=== PATIENT | female | born 1970 | race Hispanic/Latino ===

== ENCOUNTER 2018-12-18 07:39 | Emergency (ER) | payer BC, OTHER ==
[2018-12-18] MEDS ORDERED: Ondansetron PF 4 MG/2 ML Vial ONE (08:30)
[2018-12-18] MEDS ORDERED: Pantoprazole 40 MG VIAL ONE (08:30)
[2018-12-18 08:49] LABS: Bilirubin Negative (Negative); Blood, Urine Negative (Negative); Clarity CLEAR (Clear); Glucose, Urine (Dipstick) Negative (Negative); Leukocyte Negative (Negative); Nitrite Negative (Negative); Protein, Urine (Dipstick) Negative (Neg-Trace); Specific Gravity, Urine 1.004 (1.002-1.036); Urobilinogen 0.2 mg/dL (0.2-1.0)
[2018-12-18 08:54] LABS: Pregnancy Test - Urine (BHCG) Negative (Negative)
[2018-12-18 08:55] LABS: Pregu Control Background? CLEAR/WHITE (CLR/WHITE); Pregu Control Bar Appear? YES (CONTROL BAR); Specific Gravity 1.004 (1.002-1.036)
[2018-12-18 09:06] LABS: ALT (SGPT) 14 U/L (8-55); AST (SGOT) 19 U/L (5-34); Albumin 4.6 g/dL (3.5-5.0); Alkaline Phosphatase 118 U/L (40-150); Anion Gap 14 mmol/L (10-20); BUN (Urea Nitrogen) 12 mg/dL (7.0-18.7); Bilirubin, Total 0.6 mg/dL (0.2-1.2); CK (CPK) 78 U/L (29-168); Calc. Creatinine Clearance 0 mL/min (70-130); Calcium 10.2 mg/dL (7.8-10.44); Carbon Dioxide 26 mmol/L (22-29); Chloride 105 mmol/L (98-107); Estimated GFR-MDRD Greater than 90; Globulin 3.3 g/dL (2.4-3.5); Glucose 93 mg/dL (70-105); Lipase 16 U/L (8-78); Potassium 3.8 mmol/L (3.5-5.1); Protein, Total 7.9 g/dL (6.0-8.3); Sodium 141 mmol/L (136-145)
--- NOTE | 2018-12-18 09:31 | ULT ---
RIGHT UPPER QUADRANT ULTRASOUND: HISTORY: Right upper quadrant pain. Nausea and vomiting. FINDINGS: The liver demonstrates increased echogenicity, consistent with fatty infiltration. No focal mass or intrahepatic ductal dilatation is seen. No gallstones, gallbladder wall thickening, or pericholecyst ic fluid is identified. The gallbladder wall is at the upper limits of normal in thickness, measurin g 2 mm. The common duct measures 3 mm in diameter. The pancreas and right kidney appear normal. No free fluid is seen. IMPRESSION: 1. Fatty liver. 2. No evidence of cholelithiasis. POS: [facility]
[2018-12-18] MEDS ORDERED: Ketorolac Tromethamine 30 MG/ML VIAL ONE (09:58)
[2018-12-18 10:12] LABS: #Eosinphils 0.2 thou/uL (0.0-0.7); #Lymphocytes 1.7 thou/uL (1.20-3.40); #Monocytes 0.3 thou/uL (0.11-0.59); #Neutrophils 4.8 thou/uL (1.40-6.50); %Eosinophils 2.5 % (0.0-10.0); %Lymphocytes 24.1 % (21.0-51.0); %Monocytes 4.5 % (0.0-10.0); %Neutrophils 68.9 % (42.0-75.0); Hemoglobin 13.4 g/dL (12.0-16.0); Mean Corpuscular HGB CONC 33.4 g/dL (32.0-36.0); Mean Corpuscular Volume 87.1 fL (78.0-98.0); Mean Platelet Volume 7.6 fL (7.4-10.4); Platelet Count 275 thou/uL (130-400); RBC Distribution Width 12.5 % (11.5-14.5); Red Blood Cell (RBC) Count 4.62 mill/uL (4.20-5.40); White Blood Cell (WBC) Count 6.9 thou/uL (4.8-10.8)
== END 2018-12-18 10:34 | disposition home or self-care (01) ==
LOC: ERS 07:39
DX: R10.11 Right upper quadrant pain (principal); Z79.899 Other long term (current) drug therapy
CPT/HCPCS: 76705; 80053; 81003; 81025; 82550; 83690; 84484; 85025; 93005; 94760; 96361; 96372; 96374; 96375; C9113; J0500; J1885; J2405

== ENCOUNTER 2018-12-23 13:28 | Outpatient (CLI) | payer BC, OTHER ==
--- NOTE | 2018-12-23 14:19 | MMO ---
Bilateral MAMMO Bilat Screen [facility]. CLINICAL HISTORY: Patient is 48 years old and is seen for screening. The patient has no family history of breast cancer. The patient has no personal history of cancer. The patient has a history of bilateral Implants in 2010 - benign and bilateral Breast reduction in 2009. VIEWS: The views performed were: bilateral craniocaudal with tomosynthesis; bilateral mediolateral oblique with tomosynthesis; and bilateral Implant displaced. FILMS COMPARED: The present examination has been compared to prior imaging studies performed at [facility] on 11/25/2017, and at [facility] on 11/19/2017. MAMMOGRAM FINDINGS: The breasts are heterogeneously dense, which could obscure a lesion on mammography. Finding 1: Normal implants are present.. Finding 2: There is an asymmetry seen in the MLO view only seen in the lower region of the right breast. IMPRESSION: FINDING 1: IMPLANT FINDINGS IN BOTH BREASTS ARE BENIGN. FINDING 2: ASYMMETRY IN THE RIGHT BREAST REQUIRES ADDITIONAL EVALUATION. RECOMMEND DIAGNOSTIC MAMMOGRAM. ULTRASOUND MAY ALSO PROVE USEFUL AT RECALL. THE RESULTS OF THIS EXAM WERE SENT TO THE PATIENT. ACR BI-RADS Category 0 - Incomplete: Need additional imaging evaluation. [facility] will notify the patient of the need for additional imaging services. MAMMOGRAPHY NOTE: 1. A negative mammogram report should not delay a biopsy if a dominant of clinically suspicious mass is present. 2. Approximately 10% to 15% of breast cancers are not detected by mammography. 3. Adenosis and dense breasts may obscure an underlying neoplasm.
== END 2018-12-23 13:29 | disposition home or self-care (01) ==
LOC: BICMAMMO 13:28
PROVIDERS: ATTEND Family Medicine
DX: Z12.31 Encounter for screening mammogram for malignant neoplasm of breast (principal); N64.89 Other specified disorders of breast; Z98.82 Breast implant status
CPT/HCPCS: 77063; 77067

== ENCOUNTER 2018-12-29 15:19 | Outpatient (CLI) | payer BC, OTHER ==
--- NOTE | 2018-12-29 15:39 | MMO ---
Right Breast MAMMO Unilat Diag DDI RT+HAY. CLINICAL HISTORY: Patient is 48 years old and is seen for diagnostic exam. The patient has a history of bilateral Implants in 2010 - benign and bilateral Breast reduction in 2010. VIEWS: The views performed were: . FILMS COMPARED: The present examination has been compared to prior imaging studies performed at [facility] on 11/25/2017 and 12/23/2018, and at [facility] on 11/19/2017. MAMMOGRAM FINDINGS: The breast is heterogeneously dense, which could obscure a lesion on mammography. There is a focal asymmetry seen in the inner region of the right breast. Tomosynthesis compression images show the abnormality to represent superimpostion of normal breast parenchyma. There are no suspicious masses, suspicious calcifications, or new areas of architectural distortion. IMPRESSION: THERE IS NO MAMMOGRAPHIC EVIDENCE OF MALIGNANCY. A ROUTINE FOLLOW-UP MAMMOGRAM IN 1 YEAR IS RECOMMENDED. THE RESULTS OF THIS EXAM WERE SENT TO THE PATIENT. ACR BI-RADS Category 2 - Benign finding MAMMOGRAPHY NOTE: 1. A negative mammogram report should not delay a biopsy if a dominant of clinically suspicious mass is present. 2. Approximately 10% to 15% of breast cancers are not detected by mammography. 3. Adenosis and dense breasts may obscure an underlying neoplasm.
== END 2018-12-29 15:20 | disposition home or self-care (01) ==
LOC: BICMAMMO 15:19
PROVIDERS: ATTEND Family Medicine
DX: R92.2 Inconclusive mammogram (principal); Z98.82 Breast implant status
CPT/HCPCS: G0279

== ENCOUNTER 2019-09-14 10:21 | Observation (INO) | payer BC, OTHER ==
[2019-09-14] MEDS ORDERED: Metoclopramide HCl 10 MG/2 ML VIAL ONE (10:50)
[2019-09-14] MEDS ORDERED: Ketorolac Tromethamine 30 MG/ML VIAL ONE (10:50)
[2019-09-14] MEDS ORDERED: Dexamethasone 10 MG/ML VIAL ONE (10:50)
[2019-09-14 11:05] LABS: #Basophils 0.1 thou/uL (0.0-0.2); #Eosinphils 0.1 thou/uL (0.0-0.7); #Lymphocytes 2.1 thou/uL (1.20-3.40); #Monocytes 0.3 thou/uL (0.11-0.59); #Neutrophils 4.5 thou/uL (1.40-6.50); %Basophils 0.8 % (0.0-1.0); %Eosinophils 1.8 % (0.0-10.0); %Lymphocytes 29.5 % (21.0-51.0); %Monocytes 4.5 % (0.0-10.0); %Neutrophils 63.4 % (42.0-75.0); Hemoglobin 13.6 g/dL (12.0-16.0); Mean Corpuscular HGB CONC 33.8 g/dL (32.0-36.0); Mean Corpuscular Hemoglobin 29.1 pg (27.0-31.0); Mean Corpuscular Volume 86.1 fL (78.0-98.0); Mean Platelet Volume 7.3 fL (7.4-10.4); Platelet Count 253 thou/uL (130-400); RBC Distribution Width 12.1 % (11.5-14.5); Red Blood Cell (RBC) Count 4.69 mill/uL (4.20-5.40); White Blood Cell (WBC) Count 7.1 thou/uL (4.8-10.8)
--- NOTE | 2019-09-14 11:20 | RAD ---
XR Chest 1 View Portable HISTORY: Chest pain, headache and dizziness COMPARISON: None FINDINGS: The heart size is normal. The lungs are well expanded without focal areas of consolidation, pneumothorax or pleural effusions. IMPRESSION: No radiographic evidence of acute cardiopulmonary process.
[2019-09-14 11:29] LABS: ALT (SGPT) 15 U/L (8-55); AST (SGOT) 24 U/L (5-34); Albumin 4.4 g/dL (3.5-5.0); Alkaline Phosphatase 115 U/L (40-110); Anion Gap 18 mmol/L (10-20); BUN (Urea Nitrogen) 12 mg/dL (7.0-18.7); Bilirubin, Total 0.3 mg/dL (0.2-1.2); CK (CPK) 103 U/L (29-168); Calc. Creatinine Clearance 0 mL/min (70-130); Calcium 9.6 mg/dL (7.8-10.44); Carbon Dioxide 18 mmol/L (22-29); Chloride 107 mmol/L (98-107); Estimated GFR-MDRD Greater than 90; Globulin 3.3 g/dL (2.4-3.5); Glucose 75 mg/dL (70-105); Potassium 4.5 mmol/L (3.5-5.1); Protein, Total 7.7 g/dL (6.0-8.3); Sodium 138 mmol/L (136-145)
[2019-09-14] MEDS ORDERED: Morphine 4 MG/ML VIAL ONE (11:52)
--- NOTE | 2019-09-14 12:05 | CT ---
CT ARTERIOGRAM CHEST WITH IV CONTRAST AND 3D IMAGING CT ARTERIOGRAM ABDOMEN WITH IV CONTRAST AND 3D IMAGING: Date: 09/14/2019 HISTORY: Chest and abdomen pain radiating to the back. FINDINGS: There is good contrast opacification of the pulmonary arteries and aorta without evidence of dissecti on or focal filling defect. Bovine origin of the great vessels at the aortic arch. No periaortic flui d collections evident. Visceral arteries of the abdomen are patent. An accessory artery to the right superior renal pole is evident. Minimal arterial calcification. Bilateral breast implants are evident. A well-circumscribed, oval, 2.1 cm homogeneous mass in the lef t upper quadrant just medial to the splenic flexure has the same density of the spleen and is favored to represent a splenule. There are postoperative and degenerative changes of the lumbar spine. IMPRESSION: No acute vascular abnormalities are demonstrated. POS: [facility]
[2019-09-14] MEDS ORDERED: Loperamide HCl 2 MG CAP PO PRN (12:49)
[2019-09-14] MEDS ORDERED: Bisacodyl 10 MG SUPP PR PRN (12:49)
[2019-09-14] MEDS ORDERED: Ondansetron ODT 4 MG TAB PO PRN (12:49)
[2019-09-14] MEDS ORDERED: Ondansetron PF 4 MG/2 ML Vial IVP PRN (12:49)
[2019-09-14] MEDS ORDERED: Acetaminophen 325 MG TAB PO PRN (12:49)
[2019-09-14] MEDS ORDERED: diphenhydrAMINE 25 MG CAP PO PRN (12:50)
[2019-09-14] MEDS ORDERED: Benzonatate 100 MG CAP PO PRN (12:50)
[2019-09-14] MEDS ORDERED: Docusate 100 MG CAP PO PRN (12:50)
[2019-09-14] MEDS ORDERED: Melatonin 3 MG TAB PO PRN (12:50)
[2019-09-14] MEDS ORDERED: Labetalol HCl 100 MG/20 ML VIAL SLOW IVP PRN (12:50)
[2019-09-14] MEDS ORDERED: Morphine 2 MG/ML SYRINGE SLOW IVP PRN (12:51)
[2019-09-14] MEDS ORDERED: Nitroglycerin 0.4 MG TAB (25 Tab Bottle) SL PRN (12:51)
--- NOTE | 2019-09-14 13:13 | PDOC.HHP ---
Hospitalist HPI - History of Present Illness Chest pain History of Present Illness: 49 year old female with no known PMHx who takes no medications presents with chest pain. Patient woke up this AM with midsternal chest pain. Pain radiated to the back, a CTA was negative for dissection. No palpitations. No diaphoresis , though she states her cheeks feel warm. She did have nausea though no vomiting. Patient also had associated headache. 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 I find the patient in the ED, she is laying in bed comfortably in no acute distress. Breathing well on room air. Talking in full sentences, no focal neurologic deficits. Patient now states that chest pain has resolved. Still with mild headache and pain in the back. Of note patient has been under severe stress with her son who was in town visiting from [facility], he is having health problems, and he just left back to [facility] [place] - this has caused her severe psychological stress and anxiety. Patient admitted to medical unit with telemetry for close management. Hospitalist ROS - Review of Systems All other systems reviewed; all pertinent +/- noted in HPI/Subj Hospitalist History - Past Medical History Source: patient, family Cardiac: reports: no pertinent history Pulmonary: reports: no pertinent history AGRICULTURAL SPECIALIST: reports: no pertinent history Gastrointestinal: reports: no pertinent history Heme/Onc: reports: no pertinent history Hepatobiliary: reports: no pertinent history Psych: reports: no pertinent history Musculoskeletal: reports: Chronic low back pain Infectious Disease: reports: no pertinent history ENT: reports: no pertinent history Renal/: reports: no pertinent history Endocrine: reports: no pertinent history Dermatology: reports: no pertinent history - Past Surgical History Past Surgical History: reports: (x3), Other (Lumbar fusion) - Family History Family History: reports: cerebrovascular accident (mother - decessed in her 30s from CVA) - Social History Smoking Status: Never smoker Alcohol: reports: None Drugs: reports: none Living Situation: With Family Domestic Violence: Negative Activity level: independent ambulation - Exam General Appearance: NAD, awake alert Eye: PERRL, anicteric sclera ENT: normocephalic atraumatic, moist mucosa Neck: supple, symmetric, no carotid bruit Heart: RRR, no murmur, no gallops, no rubs Respiratory: CTAB, no wheezes, no rales, no ronchi, normal chest expansion, no tachypnea Gastrointestinal: soft, non-tender, non-distended, no guarding, no rigidity Extremities: no clubbing, no edema Skin: no lesions, no rashes Neurological: cranial nerve grossly intact, no focal deficits Musculoskeletal: normal tone, normal strength Psychiatric: normal affect, normal behavior, A&O x 3 Hospitalist Results - Labs Result Diagrams: 09/14/19 10:38 09/14/19 10:38 Lab results: WBC 7.1 thou/uL (4.8-10.8) 09/14/19 10:38 Hgb 13.6 g/dL (12.0-16.0) 09/14/19 10:38 Hct 40.4 % (36.0-47.0) 09/14/19 10:38 MCV 86.1 fL (78.0-98.0) 09/14/19 10:38 Plt Count 253 thou/uL (130-400) 09/14/19 10:38 Neutrophils % 63.4 % (42.0-75.0) 09/14/19 10:38 Sodium 138 mmol/L (136-145) 09/14/19 10:38 Potassium 4.5 mmol/L (3.5-5.1) 09/14/19 10:38 Chloride 107 mmol/L (98-107) 09/14/19 10:38 Carbon Dioxide 18 mmol/L (22-29) L 09/14/19 10:38 BUN 12 mg/dL (7.0-18.7) 09/14/19 10:38 Creatinine 0.68 mg/dL (0.6-1.1) 09/14/19 10:38 Glucose 75 mg/dL (70-105) 09/14/19 10:38 Calcium 9.6 mg/dL (7.8-10.44) 09/14/19 10:38 Total Bilirubin 0.3 mg/dL (0.2-1.2) 09/14/19 10:38 AST 24 U/L (5-34) 09/14/19 10:38 ALT 15 U/L (8-55) 09/14/19 10:38 Alkaline Phosphatase 115 U/L (40-110) H 09/14/19 10:38 Creatine Kinase 103 U/L (29-168) 09/14/19 10:38 Troponin I 0.012 ng/mL (< 0.028) 09/14/19 10:38 Serum Total Protein 7.7 g/dL (6.0-8.3) 09/14/19 10:38 Albumin 4.4 g/dL (3.5-5.0) 09/14/19 10:38 - Radiology Interpretation CT scan - chest Status: image reviewed by wv Hospitalist H&P A/P - Problem (1) Chest pain Code(s): R07.9 - CHEST PAIN, UNSPECIFIED Status: Acute (2) Back pain Code(s): M54.9 - DORSALGIA, UNSPECIFIED Status: Acute (3) Headache Code(s): R51 - HEADACHE Status: Acute (4) Panic attack Code(s): F41.0 - PANIC DISORDER [EPISODIC PAROXYSMAL ANXIETY] Status: Acute - Plan Plan: Plan: Admit to medical unit with telemetry NM stress test to rule out reversible ischemia Echo Morphine, oxygen, nitrates, ASA CT head added for headache Symptomatic medications as needed for headache, sounds like tension headache Continuous telemetry overnight to monitor for arrhythmia BP control Blood sugar control GI PPX DVT PPX
[2019-09-14] MEDS ORDERED: Diazepam 5 MG TAB PO PRN (13:17)
--- NOTE | 2019-09-14 13:40 | CT ---
Exam: Head CT without contrast HISTORY: Headache COMPARISON: none FINDINGS: Hemorrhage: No intraparenchymal hemorrhage or extra-axial hematoma. Brain parenchyma: Cortical colin-white matter differentiation is preserved. No mass effect or midline shift. Basilar cisterns are patent. Ventricular system: Ventricles and sulci are patent and symmetric. Calvarium: Intact. Sinuses and mastoid air cells: Adequate aeration. IMPRESSION: No acute intracranial process.
[2019-09-14] MEDS ORDERED: Aspirin Chewable 81 MG TAB ONE (13:52)
[2019-09-14] MEDS ORDERED: Iopamidol-370 76% 500 ML 1 ML ONE (14:45)
[2019-09-14 15:54] VITALS: BMI 37.4
[2019-09-14 16:17] LABS: Troponin I 0.014 ng/mL (< 0.028)
[2019-09-14 18:02] LABS: Troponin I Less than 0.010 ng/mL (< 0.028)
[2019-09-14] MEDS: Famotidine 20 MG TAB PO SCH (20:31)
[2019-09-14] MEDS: HYDROcodone/Acetaminophen 5/325 mg Tablet PO PRN (22:10)
[2019-09-15] MEDS: HYDROcodone/Acetaminophen 5/325 mg Tablet PO PRN (07:59)
[2019-09-15] MEDS: Famotidine 20 MG TAB PO SCH (07:59)
--- NOTE | 2019-09-15 08:32 | PDOC.HOSPP ---
- Subjective Encounter Date: 09/15/19 Encounter Time: 12:00 Subjective: Patient without further chest pain. Had a SHAH this AM better after norco. Only complaint now is upper back pain between shoulder blades. - Objective Vital Signs & Weight: Vital Signs (12 hours) Temp Pulse Resp BP Pulse Ox 09/15/19 07:55 98.0 F 67 12 130/75 99 09/15/19 04:31 97.6 F 83 15 125/73 99 09/14/19 23:35 97.8 F 77 17 124/76 96 Weight Weight 198 lb 14.4 oz I&O: 09/14/19 09/15/19 09/16/19 06:59 06:59 06:59 Intake Total 760 Balance 760 Result Diagrams: 09/14/19 10:38 09/14/19 10:38 Hospitalist ROS - Review of Systems Constitutional: denies: fever, chills Respiratory: denies: cough, shortness of breath Cardiovascular: denies: chest pain, palpitations, orthopnea Gastrointestinal: denies: nausea, vomiting, abdominal pain Musculoskeletal: reports: back pain - Medication Medications: Active Medications Generic Name Dose Route Start Last Admin Trade Name Freq PRN Reason Stop Dose Admin Acetaminophen 650 mg 09/14/19 12:49 09/14/19 16:02 Tylenol PO 650 mg Q4H PRN Administration Headache/Fever/Mild Pain (1-3) Hydrocodone Bitart/Acetaminophen 1 tab 09/14/19 12:49 09/15/19 07:59 [place] 5/325 PO 1 tab Q4H PRN Administration Moderate Pain (4-6) Aspirin 81 mg 09/15/19 09:00 09/15/19 07:59 Ecotrin PO 81 mg DAILY ROBIN Administration Famotidine 20 mg 09/14/19 21:00 09/15/19 07:59 Pepcid PO 20 mg BID ROBIN Administration Morphine Sulfate 2 mg 09/14/19 12:51 09/14/19 17:59 Morphine SLOW IVP 2 mg Q4H PRN Administration Moderate to Severe Pain (6-10) Ondansetron HCl 4 mg 09/14/19 12:49 09/14/19 17:59 Zofran IVP 4 mg Q6H PRN Administration Nausea/Vomiting - Exam General Appearance: NAD, awake alert ENT: moist mucosa Heart: RRR, no murmur, no gallops, no rubs Respiratory: CTAB, no wheezes, no rales Gastrointestinal: soft, non-tender, non-distended, normal bowel sounds Musculoskeletal - other findings: Tender triggerpoints in rhomboids bilaterally , reproduces all pain Psychiatric: normal affect, normal behavior, A&O x 3 Hosp A/P (1) Chest pain Code(s): R07.9 - CHEST PAIN, UNSPECIFIED Status: Resolved (2) Back pain Code(s): M54.9 - DORSALGIA, UNSPECIFIED Status: Acute (3) Headache Code(s): R51 - HEADACHE Status: Acute (4) Panic attack Code(s): F41.0 - PANIC DISORDER [EPISODIC PAROXYSMAL ANXIETY] Status: Acute - Plan Patient without significant PMH. ECHO and stress test normal. Appears to be acute stress/anxiety reaction from son's recent visit and triggerpoints in rhomboids. Will d/c with NSAIDS, f/u with PCP.
[2019-09-15] MEDS ORDERED: Aspirin 81 mg Enteric Coated Tablet PO SCH (09:00)
[2019-09-15 11:53] VITALS: BP 124/70; TEMP 97.7
--- NOTE | 2019-09-15 11:56 | NM ---
EXAM: CARDIAC SPECT HISTORY: Chest pain TECHNIQUE: A myocardial perfusion scan was performed using the single isotope 2 day protocol with amanda hnetium 99m sestamibi. [32 mCi] was injected intravenously for the rest exam followed by 30 mCi for the stress study. Exercise stress was monitored and interpreted by Dr. Shane FINDINGS: Homogeneous tracer distribution is seen in the myocardial segments on stress and rest image s without fixed or reversible defects. Gated SPECT LVEF: 88% Wall motion exam: Normal IMPRESSION: Normal myocardial perfusion scan
--- NOTE | 2019-09-15 12:32 | PDOC.EVN ---
Event Note - Event Note Event Note: To Whom it May Concern, Magaly Nuñez was seen in the hospital from 09/14/2019 until 09/15/2019. Please excuse her spouse Sj Guzman from work for that time period when he was supporting her in the hospital. Thank you. Sincerely, Jason Yan MD
--- NOTE | 2019-09-16 13:40 | DIS ---
DATE OF ADMISSION: 09/14/2019 DATE OF DISCHARGE: 09/15/2019 PRIMARY CARE PHYSICIAN: Dr. Thibodeaux. REASON FOR ADMISSION: Chest pain. DIAGNOSES AT DISCHARGE: 1. Chest pain, resolved, noncardiac. 2. Back pain. 3. Headache. 4. Panic attack. 5. Trigger points in the rhomboids. PROCEDURES: 1. CT of the chest and abdomen aortic dissection protocol showing no acute vascular abnormalities. 2. Nuclear medicine stress testing, which shows a normal myocardial perfusion scan. 3. CT of the head showing no acute intracranial process. 4. Echocardiogram showing ejection fraction of 60% to 65% without any significant abnormalities. SUMMARY OF HOSPITAL COURSE: This is a 49-year-old female with no significant past medical history, who presented with midsternal chest pain radiating to the back. She had been under a lot of stress recently. Her son was just visiting from [facility] is having health problems and he just left to go back to [facility], which cause some severe psychological stress and anxiety. The patient was seen in the emergency room due to the radiation of her chest pain to her back. She had a CTA was done, which was negative for dissection. The chest pain resolved the time we saw her in the emergency room. She was kept in the hospital overnight on telemetry monitoring. Cardiac marker sets were negative. The cardiac monitor technician was negative. She had a stress test with an echocardiogram, which was negative as above. The patient was doing well on the day of discharge and is being discharged to home to follow up with her primary care doctor. DISCHARGE MANAGEMENT: Discharged to home. ACTIVITY: As tolerated. DIET: Regular diet. FOLLOWUP: Follow up with Dr. Thibodeaux in 7 days. DISCHARGE MEDICATIONS: 1. Parafon Forte 500 mg three times a day as needed for muscle spasm pain, 30 tablets dispensed. 2. Naproxen 500 mg twice a day as needed for pain, 60 tablets dispensed. Job ID: [id number]
== END 2019-09-15 13:19 | disposition home or self-care (01) ==
LOC: ERS 10:21 → ERHOLD 12:52 → 2SW 15:37
PROVIDERS: ADMIT Internal Medicine; ATTEND Internal Medicine
DX: R07.89 Other chest pain (principal); M54.9 Dorsalgia, unspecified; R51 Headache; F41.0 Panic disorder [episodic paroxysmal anxiety]
CPT/HCPCS: 36415; 70450; 71045; 71275; 72191; 74175; 78452; 80053; 82550; 84484; 85025; 93005; 93017; 93306; 96365; 96375; 96376; A9500; G0378; J1100; J1885; J2270; J2405; J2765; Q9967

== ENCOUNTER 2020-01-24 10:39 | Outpatient (CLI) | payer OTHER ==
--- NOTE | 2020-01-24 11:43 | MMO ---
Bilateral MAMMO Bilat Screen [facility]DI+[facility]AY. CLINICAL HISTORY: Patient is 49 years old and is seen for screening. The patient has no family history of breast cancer. The patient has no personal history of cancer. The patient has a history of bilateral Implants in 2010 - benign and bilateral Breast reduction in 2009. VIEWS: The views performed were: bilateral craniocaudal; bilateral craniocaudal with tomosynthesis; bilateral mediolateral oblique; bilateral mediolateral oblique with tomosynthesis; bilateral Implant displaced with tomosynthesis; and right Implant displaced. FILMS COMPARED: The present examination has been compared to prior imaging studies performed at [place] [facility] on 11/25/2017, 12/23/2018 and 12/29/2018, and at [facility] on 11/19/2017. This study has been interpreted with the assistance of computer-aided detection. MAMMOGRAM FINDINGS: The breasts are heterogeneously dense, which could obscure a lesion on mammography. There are no suspicious masses, suspicious calcifications, or new areas of architectural distortion. IMPRESSION: THERE IS NO MAMMOGRAPHIC EVIDENCE OF MALIGNANCY. A ROUTINE FOLLOW-UP MAMMOGRAM IN 1 YEAR IS RECOMMENDED. THE RESULTS OF THIS EXAM WERE SENT TO THE PATIENT. ACR BI-RADS Category 1 - Negative MAMMOGRAPHY NOTE: 1. A negative mammogram report should not delay a biopsy if a dominant of clinically suspicious mass is present. 2. Approximately 10% to 15% of breast cancers are not detected by mammography. 3. Adenosis and dense breasts may obscure an underlying neoplasm. Reported by: BARRIE AQUINO MD Electonically Signed: [id number]
== END 2020-01-24 10:40 | disposition home or self-care (01) ==
LOC: BICMAMMO 10:39
PROVIDERS: ATTEND Family Medicine
DX: Z12.31 Encounter for screening mammogram for malignant neoplasm of breast (principal); Z98.82 Breast implant status; Z98.890 Other specified postprocedural states
CPT/HCPCS: 77063; 77067

== ENCOUNTER 2020-11-15 09:05 | Emergency (ER) | payer OTHER ==
[2020-11-15] MEDS ORDERED: Ketorolac Tromethamine 30 MG/ML VIAL ONE (09:46)
[2020-11-15] MEDS ORDERED: Acetaminophen 500 MG TAB ONE (09:46)
== END 2020-11-15 10:49 | disposition home or self-care (01) ==
LOC: ERS 09:05
DX: S29.011A Strain of muscle and tendon of front wall of thorax, initial encounter (principal); S20.212A Contusion of left front wall of thorax, initial encounter; W01.198A Fall on same level from slipping, tripping and stumbling with subsequent striking against other object, initial encounter
CPT/HCPCS: 71046; 93005; 96372; J1885

== ENCOUNTER 2021-02-02 09:11 | Outpatient (CLI) | payer OTHER | END 2021-02-02 09:12 | disposition home or self-care (01) | LOC: BICMAMMO 09:11 | PROVIDERS: ATTEND Family Medicine | DX: Z12.31 Encounter for screening mammogram for malignant neoplasm of breast (principal); Z98.82 Breast implant status | CPT/HCPCS: 77063; 77067 ==

== ENCOUNTER 2022-02-12 11:45 | Outpatient (CLI) | payer BC, OTHER | END 2022-02-12 11:46 | disposition home or self-care (01) | LOC: BICMAMMO 11:45 | PROVIDERS: ATTEND Family Medicine | DX: Z12.31 Encounter for screening mammogram for malignant neoplasm of breast (principal); Z98.82 Breast implant status | CPT/HCPCS: 77063; 77067 ==

== ENCOUNTER 2022-08-22 15:19 | Outpatient (CLI) | payer BC | END 2022-08-22 15:20 | disposition home or self-care (01) | LOC: BICRAD 15:19 | PROVIDERS: ATTEND Internal Medicine Rheumatology | DX: M46.1 Sacroiliitis, not elsewhere classified (principal); M53.3 Sacrococcygeal disorders, not elsewhere classified | CPT/HCPCS: 72202 ==

== ENCOUNTER 2023-02-18 11:22 | Outpatient (CLI) | payer BC | END 2023-02-18 11:23 | disposition home or self-care (01) | LOC: BICMAMMO 11:22 | PROVIDERS: ATTEND Family Medicine | DX: Z12.31 Encounter for screening mammogram for malignant neoplasm of breast (principal); Z98.82 Breast implant status | CPT/HCPCS: 77063; 77067 ==